=== PATIENT | male | born 1990 | race African-American/Black ===

== ENCOUNTER 2016-08-13 14:25 | Emergency (ER) | payer OTHER ==
[~2016-08-13] VITALS: Ht 170.2 cm; Wt 46.8 kg
[2016-08-13 14:53] VITALS: BP 97/68; PULSE 78; RESP 16; TEMP 98.2; O2SAT 99
[2016-08-13] MEDS ORDERED: AMOX500T PO (16:04)
--- NOTE | 2016-08-13 16:13 | PD ---
HPI Chief Complaint: ENT Complaint Time Seen by Provider: 16:04 Travel History International Travel<30 days: No Contact w/Intl Traveler<30days: No Traveled to known affect area: No History of Present Illness HPI 26-year-old male presents to the emergency room for evaluation of right ear fullness and pain. Patient states her right ear fullness started after being on an airplane a few weeks ago, pain started today. Describes it as throbbing. States that when he applies pressure to the ear, it relieves the pain temporarily. Since starting, the pain and discomfort have been getting worse. He works at a [employer] and is having difficulty hearing out of the right ear. He denies any drainage. Denies fever, chills, nausea, vomiting. He has not taken anything done anything for her symptoms. Patient denies any other upper respiratory symptoms at this time. PFSH Past Medical History Medical History: Denies Significant Hx Diminished Hearing: No Immunizations Current: No Tetanus Vaccination: Unknown Influenza Vaccination: No Past Surgical History Surgical History: No Previous Surgery Social History Alcohol Use: Yes Tobacco Use: Yes Substance Use: No Allergies-Medications (Allergen,Severity, Reaction): Coded Allergies: No Known Allergies (Unverified , 08/13/16) Review of Systems Except as stated in HPI: all other systems reviewed are Neg Physical Exam Narrative GENERAL: Well-nourished, well-developed male in no acute distress. Afebrile. Ambulatory. SKIN: Focused skin assessment warm/dry. HEAD: Normocephalic. EYES: No scleral icterus. No injection or drainage. THROAT: Mucosa pink and moist. No erythema or exudates. No uvular edema. No uvular, palatal, or tonsillar deviation. Airway patent. EARS: Bilateral pinnae and external canals appear within normal limits. Left tympanic membrane without erythema, dullness or perforation. Right tympanic membrane is slightly erythematous and dull with loss of landmarks. No perforation. NECK: Supple, trachea midline. No JVD or lymphadenopathy. CARDIOVASCULAR: Regular rate and rhythm without murmurs, gallops, or rubs. RESPIRATORY: Breath sounds equal bilaterally. No accessory muscle use. Data Data Last Documented VS Vital Signs Date Time Temp Pulse Resp B/P Pulse Ox O2 Delivery O2 Flow Rate FiO2 08/13/16 14:53 98.2 78 16 97/68 99 MDM Medical Decision Making Medical Screen Exam Complete: Yes Emergency Medical Condition: Yes Medical Record Reviewed: Yes Differential Diagnosis Eustachian dysfunction versus otitis media versus otitis externa Narrative Course 26-year-old male presents to the emergency room for evaluation of right ear pain and fullness. Fullness started weeks ago after being on an airplane. Pain started this morning. It is described as throbbing. Vital signs stable. Patient resting comfortably in bed. No other associated symptoms. Physical exam reveals right tympanic membranes is dull and slightly erythematous with obvious effusion. Possible mild medrano. No perforation. This is likely eustachian tube dysfunction however given acute onset of pain and erythema, patient will be treated conservatively for otitis media. Told to follow-up with primary care physician or return to the emergency room for worsening symptoms. He understands and agrees to plan. Diagnosis Primary Impression: Left otitis media with effusion Referrals: Primary Care Physician Patient Instructions: General Instructions, Otitis Media (ED) Additional Instructions: Rest and drink plenty of fluids. Take amoxicillin as directed, until gone. Take ibuprofen with food as directed, as needed for pain. Use [id number] Afrin for 3 days. Follow-up with a primary care physician. Return to the emergency room for worsening symptoms. Med/Other Pt SpecificInfo: Prescription(s) given Scripts Amoxicillin 500 Mg [id number] Mg PO BID 7 Days Ref 0 Prov:Camille Hurst MD 08/13/16 Disposition: 01 DISCHARGE HOME Condition: Stable Cindy Holguin August 13, 2016 16:13
== END 2016-08-13 16:21 | disposition home or self-care (01) ==
LOC: PHED 14:25 → PHEFT 16:21
DX: H65.92 Unspecified nonsuppurative otitis media, left ear (principal); Z72.0 Tobacco use
CPT/HCPCS: 99283